=== PATIENT | male | born 1995 | race African-American/Black ===

== ENCOUNTER 2024-09-16 09:57 | Emergency (ER) | payer BC ==
[~2024-09-16] VITALS: Ht 190.5 cm; Wt 137.0 kg
[2024-09-16 10:01] VITALS: O2SAT 99
[2024-09-16 11:02] LABS: HEMATOCRIT. 46.1 % (42.0-52.0); MEAN CORPUSCULAR HEMOGLOBIN 29.9 pg (28.0-32.0); MEAN CORPUSCULAR HGB CONC 32.6 g/dL (31.0-37.0); MEAN CORPUSCULAR VOLUME 91.9 fL (80.0-94.0); MEAN PLATELET VOLUME 8.7 fl (7.4-10.4); PLATELET 196 x1000/uL (130-400); RED BLOOD CELL COUNT 5.02 mill/uL (4.7-6.1); WHITE BLOOD COUNT 5.9 x1000/uL (4.5-11.0)
[2024-09-16 11:03] LABS: DIFFERENTIAL COMMENT 1
[2024-09-16 11:06] LABS: CHLORIDE 102 mEq/L (98-107); POTASSIUM 4.1 mEq/L (3.5-5.1); SODIUM 136 mEq/L (136-145)
[2024-09-16 11:07] LABS: CALCIUM 9.8 mg/dL (8.7-10.4); CARBON DIOXIDE 26 mEq/L (21-32)
[2024-09-16 11:12] LABS: CREATININE 1.2 mg/dL (0.6-1.3); GLUCOSE 112 mg/dL (70-105); UREA NITROGEN BLOOD 9 mg/dL (9-23)
[2024-09-16 11:14] LABS: TROPONIN I HIGH SENSITIVITY 5 ng/L (3.0-53)
[2024-09-16] MEDS ORDERED: TAM75 MT (11:38)
[2024-09-16] MEDS ORDERED: ALBU90AE INH (11:38)
[2024-09-16 11:46] VITALS: BP 122/79; PULSE 99; RESP 18; TEMP 37.05852; O2SAT 99
[2024-09-16 12:13] LABS: PLATELET ESTIMATE NORMAL
== END 2024-09-16 11:46 | disposition home or self-care (01) ==
LOC: EDBD 09:57 → ER 10:50
DX: J11.1 Influenza due to unidentified influenza virus with other respiratory manifestations (principal); R07.89 Other chest pain; J45.909 Unspecified asthma, uncomplicated; I10 Essential (primary) hypertension
CPT/HCPCS: 36415; 71045; 80048; 84484; 85025; 93005; 99285